=== PATIENT | female | born 1990 | race Caucasian/White ===

== ENCOUNTER 2018-07-07 20:13 | Emergency (ER) | payer SELFPAY ==
[~2018-07-07] VITALS: Ht 160 cm; Wt 71.7 kg
[2018-07-07 20:38] VITALS: Ht 160 cm; Wt 71.7 kg
[2018-07-08 01:21] VITALS: BP 120/67
== END 2018-07-08 01:21 | disposition home or self-care (01) ==
LOC: ED 20:13
DX: R51 Headache (principal)